=== PATIENT | male | born 1960 | race African-American/Black ===

== ENCOUNTER 2021-03-12 08:49 | Inpatient (IN) | payer MEDICAID, OTHER ==
[~2021-03-12] VITALS: Ht 180.3 cm; Wt 81.3 kg
[~2021-03-12 08:49] MED LIST: AMLO10TA4 PO; CARI350T28 PO; FLOV44 INH; HYDR-519 PO; METF-416 PO
[2021-03-12] MEDS ORDERED: MORPHINE SULFATE 4 MG/ML CPJ (NOT FOR IM USE) IV ONE ×2 (09:15→10:15)
[2021-03-12 09:45] LABS: HEMATOCRIT. 30.9 % (42.0-52.0); HEMOGLOBIN. 9.6 g/dL (14.0-18.0); MEAN CORPUSCULAR HEMOGLOBIN 21.5 pg (28.0-32.0); MEAN CORPUSCULAR VOLUME 69.4 fL (80.0-94.0); MEAN PLATELET VOLUME 7.5 fl (7.4-10.4); PLATELET 332 x1000/uL (130-400); RED BLOOD CELL COUNT 4.45 mill/uL (4.7-6.1); RED CELL DISTRIBUTION WIDTH 21.7 % (11.6-14.6)
[2021-03-12 09:51] LABS: CHLORIDE 99 mEq/L (98-107)
[2021-03-12 10:37] LABS: PLATELET ESTIMATE NORMAL
[2021-03-12] MEDS ORDERED: CLONIDINE 0.1MG TABLET PO PRN (12:00)
[2021-03-12] MEDS ORDERED: ONDANSETRON HCL 4MG/2ML INJ IV PRN (12:00)
[2021-03-12] MEDS ORDERED: NALOXONE HCL 0.4MG/ML VIAL IV PRN (12:15)
[2021-03-12] MEDS: DIPHENHYDRAMINE 50MG/ML VIAL IV PRN ×2 (14:08→21:41)
[2021-03-12] MEDS: MORPHINE SULFATE 2 MG/ML CPJ (NOT FOR IM USE) IV PRN ×3 (14:08→21:41)
[2021-03-12 14:38] LABS: CLARITY URINE CLEAR (CLEAR); COLOR URINE YELLOW (YELLOW); KETONES URINE NEGATIVE (NEGATIVE); LEUKOCYTE ESTERASE URINE TRACE (NEGATIVE); NITRITE URINE NEGATIVE (NEGATIVE); OCCULT BLOOD URINE NEGATIVE (NEGATIVE); PH URINE 6.5 (4.5-8.0); PROTEIN URINE NEGATIVE (NEGATIVE); SPECIFIC GRAVITY URINE 1.017 (1.005-1.030)
[2021-03-12] MEDS: ASPIRIN 81MG EC TABLET PO SCH (14:49)
[2021-03-12 14:58] LABS: METHADONE URINE SCREEN NEGATIVE (NEGATIVE); OPIATES URINE SCREEN PRESUMTIVE POSITIVE (NEGATIVE); PHENCYCLIDINE URINE SCREEN NEGATIVE (NEGATIVE)
[2021-03-12 14:59] LABS: *AMPHETAMINES SCREEN URINE NEGATIVE (NEGATIVE); *BARBITURATES SCREEN URINE NEGATIVE (NEGATIVE); *BENZODIAZEPINES SCREEN URINE NEGATIVE (NEGATIVE); *COCAINE SCREEN URINE PRESUMTIVE POSITIVE (NEGATIVE); CANNABINOID URINE SCREEN NEGATIVE (NEGATIVE)
[2021-03-12] MEDS: FUROSEMIDE 40MG/4ML VIAL IV SCH ×2 (17:00→18:38)
[2021-03-12 18:15] VITALS: BP 108/60
[2021-03-12] MEDS ORDERED: POTA-189 MT (18:59)
[2021-03-12] MEDS ORDERED: DOCU100T MT (18:59)
[2021-03-12] MEDS ORDERED: CARV12.545 MT (18:59)
[2021-03-12] MEDS ORDERED: ASCO500C18 MT (18:59)
[2021-03-12] MEDS ORDERED: FURO80TA3 MT (18:59)
[2021-03-12] MEDS ORDERED: ATOR40TA70 MT (18:59)
[2021-03-12] MEDS ORDERED: ASPI-1497 MT (18:59)
[2021-03-12] MEDS ORDERED: PANT40TA51 MT (19:00)
[2021-03-12] MEDS ORDERED: ZINC50TA69 MT (19:00)
[2021-03-12] MEDS ORDERED: SENN-257 MT (19:00)
[2021-03-12 20:00] VITALS: BP 106/69
[2021-03-12 21:00] VITALS: BP 106/69
[2021-03-12] MEDS ORDERED: DEXTROSE 50% WATER 50ML SYRINGE IV PRN (23:00)
[2021-03-12 23:59] VITALS: BP 100/58
[2021-03-13 04:00] VITALS: BP 100/50
[2021-03-13] MEDS: INSULIN LISPRO 100 UNITS/ML SUBCUT SCH ×4 (06:27→21:00)
[2021-03-13] MEDS: BLOOD SUGAR DIAGNOSTIC STRIP TEST SCH ×4 (06:27→21:00)
[2021-03-13] MEDS: MORPHINE SULFATE 2 MG/ML CPJ (NOT FOR IM USE) IV PRN ×4 (07:49→23:59)
[2021-03-13 07:55] VITALS: BP 103/65
[2021-03-13] MEDS: FUROSEMIDE 40MG/4ML VIAL IV SCH ×2 (08:02→17:00)
[2021-03-13] MEDS: ASPIRIN 81MG EC TABLET PO SCH (08:02)
[2021-03-13 12:00] VITALS: BP 107/72
[2021-03-13] MEDS ORDERED: LACTULOSE 20G/30ML UDC PO NR (15:15)
[2021-03-13 16:00] VITALS: BP_SYST 96; BP_DIAS 60; BP_DIAS 63
[2021-03-13 17:22] LABS: HEMATOCRIT. 29.5 % (42.0-52.0); MEAN CORPUSCULAR HEMOGLOBIN 21.4 pg (28.0-32.0); MEAN CORPUSCULAR VOLUME 70.1 fL (80.0-94.0); MEAN PLATELET VOLUME 8.3 fl (7.4-10.4); PLATELET 377 x1000/uL (130-400); RED BLOOD CELL COUNT 4.21 mill/uL (4.7-6.1); RED CELL DISTRIBUTION WIDTH 21.7 % (11.6-14.6)
[2021-03-13 17:41] LABS: CHLORIDE 98 mEq/L (98-107)
[2021-03-13 17:54] LABS: PLATELET ESTIMATE NORMAL
[2021-03-13] MEDS ORDERED: ENOXAPARIN 40MG/0.4ML SYR SUBCUT SCH (18:30)
[2021-03-13] MEDS: ENOXAPARIN 40MG/0.4ML SYR SUBCUT SCH ×2 (19:00→19:52)
[2021-03-13] MEDS: DIPHENHYDRAMINE 50MG/ML VIAL IV PRN (19:52)
[2021-03-13 20:00] VITALS: BP 128/83
[2021-03-14] VITALS: BP 115/75
[2021-03-14] MEDS: ACETAMINOPHEN 325MG TABLET PO PRN (02:28)
[2021-03-14] MEDS: MORPHINE SULFATE 2 MG/ML CPJ (NOT FOR IM USE) IV PRN ×5 (03:59→23:29)
[2021-03-14 04:00] VITALS: BP 107/62
[2021-03-14] MEDS: BLOOD SUGAR DIAGNOSTIC STRIP TEST SCH ×4 (06:15→21:19)
[2021-03-14] MEDS: INSULIN LISPRO 100 UNITS/ML SUBCUT SCH ×4 (06:15→21:00)
[2021-03-14 08:00] VITALS: BP 89/62
[2021-03-14] MEDS: FUROSEMIDE 40MG/4ML VIAL IV SCH (08:24)
[2021-03-14] MEDS: ASPIRIN 81MG EC TABLET PO SCH (08:25)
[2021-03-14 12:00] VITALS: BP 87/58
[2021-03-14 16:00] VITALS: BP 85/56
[2021-03-14 20:00] VITALS: BP 112/89
[2021-03-14] MEDS ORDERED: FUROSEMIDE 40MG TABLET PO SCH (21:00)
[2021-03-14] MEDS: ENOXAPARIN 40MG/0.4ML SYR SUBCUT SCH (21:19)
[2021-03-14] MEDS: HYDROCODONE/ACETAMINOPHEN 10/325MG TABLET PO PRN (21:33)
[2021-03-15] VITALS (7 sets, daily range): BP systolic 86–109; BP diastolic 34–67
[2021-03-15] MEDS: ACETAMINOPHEN 325MG TABLET PO PRN ×2 (00:38→17:07)
[2021-03-15] MEDS: DIPHENHYDRAMINE 50MG/ML VIAL IV PRN ×2 (02:26→22:49)
[2021-03-15] MEDS: HYDROCODONE/ACETAMINOPHEN 10/325MG TABLET PO PRN ×2 (05:05→20:56)
[2021-03-15] MEDS: BLOOD SUGAR DIAGNOSTIC STRIP TEST SCH ×4 (06:01→20:56)
[2021-03-15] MEDS: INSULIN LISPRO 100 UNITS/ML SUBCUT SCH ×4 (06:07→20:56)
[2021-03-15] MEDS: MORPHINE SULFATE 2 MG/ML CPJ (NOT FOR IM USE) IV PRN ×2 (06:13→10:10)
[2021-03-15] MEDS: ASPIRIN 81MG EC TABLET PO SCH (09:56)
[2021-03-15 15:33] LABS: HEMATOCRIT. 28.4 % (42.0-52.0); HEMOGLOBIN. 8.7 g/dL (14.0-18.0); MEAN CORPUSCULAR HEMOGLOBIN 21.4 pg (28.0-32.0); MEAN CORPUSCULAR VOLUME 69.6 fL (80.0-94.0); MEAN PLATELET VOLUME 8.1 fl (7.4-10.4); PLATELET 421 x1000/uL (130-400); RED BLOOD CELL COUNT 4.08 mill/uL (4.7-6.1); RED CELL DISTRIBUTION WIDTH 21.7 % (11.6-14.6)
[2021-03-15 15:44] LABS: CHLORIDE 98 mEq/L (98-107)
[2021-03-15] MEDS: IPRATROPIUM/ALBUTEROL 0.5-3(2.5)MG/3ML NEB NEB PRN (15:45)
[2021-03-15 17:48] LABS: PLATELET ESTIMATE INCREASED
[2021-03-15] MEDS ORDERED: LACTULOSE 20G/30ML UDC PO NR (18:00)
[2021-03-15] MEDS: ENOXAPARIN 40MG/0.4ML SYR SUBCUT SCH (18:04)
[2021-03-16] VITALS: BP 110/80
[2021-03-16] MEDS: MORPHINE SULFATE 2 MG/ML CPJ (NOT FOR IM USE) IV PRN (01:54)
[2021-03-16 04:00] VITALS: BP 100/65
[2021-03-16] MEDS: IPRATROPIUM/ALBUTEROL 0.5-3(2.5)MG/3ML NEB NEB PRN (05:01)
[2021-03-16] MEDS: HYDROCODONE/ACETAMINOPHEN 10/325MG TABLET PO PRN ×3 (05:21→18:58)
[2021-03-16] MEDS: BLOOD SUGAR DIAGNOSTIC STRIP TEST SCH ×4 (06:40→21:06)
[2021-03-16] MEDS: INSULIN LISPRO 100 UNITS/ML SUBCUT SCH ×4 (06:53→21:00)
[2021-03-16 08:00] VITALS: BP 99/59
[2021-03-16] MEDS ORDERED: AMLODIPINE 2.5MG TABLET PO SCH (09:00)
[2021-03-16] MEDS: FUROSEMIDE 40MG TABLET PO SCH (09:00)
[2021-03-16] MEDS: ASPIRIN 81MG EC TABLET PO SCH (09:23)
[2021-03-16 09:28] LABS: HEMATOCRIT. 29.5 % (42.0-52.0); HEMOGLOBIN. 9.1 g/dL (14.0-18.0); MEAN CORPUSCULAR HEMOGLOBIN 21.9 pg (28.0-32.0); MEAN CORPUSCULAR VOLUME 70.7 fL (80.0-94.0); MEAN PLATELET VOLUME 8.3 fl (7.4-10.4); PLATELET 412 x1000/uL (130-400); RED BLOOD CELL COUNT 4.17 mill/uL (4.7-6.1); RED CELL DISTRIBUTION WIDTH 21.1 % (11.6-14.6)
[2021-03-16 09:56] LABS: CHLORIDE 98 mEq/L (98-107)
[2021-03-16 12:00] VITALS: BP 105/67
[2021-03-16 13:00] LABS: PLATELET ESTIMATE INCREASED
[2021-03-16 16:00] VITALS: BP 94/64
[2021-03-16] MEDS: ENOXAPARIN 40MG/0.4ML SYR SUBCUT SCH (19:00)
[2021-03-16 20:00] VITALS: BP 97/66
[2021-03-17] VITALS (7 sets, daily range): BP systolic 96–106; BP diastolic 61–74
[2021-03-17] MEDS: HYDROCODONE/ACETAMINOPHEN 10/325MG TABLET PO PRN ×4 (00:56→19:59)
[2021-03-17] MEDS ORDERED: ACETAMINOPHEN 325MG TABLET PO PRN (03:30)
[2021-03-17] MEDS: BLOOD SUGAR DIAGNOSTIC STRIP TEST SCH ×4 (06:13→21:17)
[2021-03-17] MEDS: INSULIN LISPRO 100 UNITS/ML SUBCUT SCH ×4 (06:13→21:00)
[2021-03-17] MEDS: ASPIRIN 81MG EC TABLET PO SCH (08:33)
[2021-03-17] MEDS: FUROSEMIDE 40MG TABLET PO SCH (08:33)
[2021-03-17] MEDS ORDERED: LACTULOSE 20G/30ML UDC PO NR (14:45)
[2021-03-17] MEDS: IPRATROPIUM/ALBUTEROL 0.5-3(2.5)MG/3ML NEB NEB PRN ×2 (17:38→21:17)
[2021-03-17] MEDS: ENOXAPARIN 40MG/0.4ML SYR SUBCUT SCH (18:01)
== END 2021-03-17 23:31 | DRG 349 ==
LOC: ER 08:49 → 7EST 11:29 → EDBEDREQ 11:37 → EDBEDREQTM 11:37 → ENRESERV 15:56
PROVIDERS: ADMIT Internal Medicine; ATTEND Internal Medicine
DX: T87.89 Other complications of amputation stump (principal); I31.3 Pericardial effusion (noninflammatory); E44.1 Mild protein-calorie malnutrition; E11.51 Type 2 diabetes mellitus with diabetic peripheral angiopathy without gangrene; D72.825 Bandemia; E78.00 Pure hypercholesterolemia, unspecified; M94.0 Chondrocostal junction syndrome [Tietze]; E78.5 Hyperlipidemia, unspecified; T40.5X1A Poisoning by cocaine, accidental (unintentional), initial encounter; I50.22 Chronic systolic (congestive) heart failure; I11.0 Hypertensive heart disease with heart failure; I25.10 Atherosclerotic heart disease of native coronary artery without angina pectoris; I48.91 Unspecified atrial fibrillation; J44.9 Chronic obstructive pulmonary disease, unspecified; S90.421A Blister (nonthermal), right great toe, initial encounter; G89.29 Other chronic pain; I25.5 Ischemic cardiomyopathy; M85.80 Other specified disorders of bone density and structure, unspecified site; Y82.8 Other medical devices associated with adverse incidents; F14.10 Cocaine abuse, uncomplicated; Z20.822 Contact with and (suspected) exposure to COVID-19; S80.811A Abrasion, right lower leg, initial encounter; X58.XXXA Exposure to other specified factors, initial encounter; I25.2 Old myocardial infarction; Z87.891 Personal history of nicotine dependence; Z89.612 Acquired absence of left leg above knee; Z95.0 Presence of cardiac pacemaker; Z95.5 Presence of coronary angioplasty implant and graft; Z79.899 Other long term (current) drug therapy; Z99.3 Dependence on wheelchair; Z88.6 Allergy status to analgesic agent; Z91.010 Allergy to peanuts; Z79.891 Long term (current) use of opiate analgesic; Z79.84 Long term (current) use of oral hypoglycemic drugs; Y92.89 Other specified places as the place of occurrence of the external cause; Y93.89 Activity, other specified; Y99.8 Other external cause status; Z68.25 Body mass index [BMI] 25.0-25.9, adult
CPT/HCPCS: 36415; 71045; 73080; 73090; 73600; 73630; 80048; 80053; 80305; 81003; 82962; 83036; 83880; 84443; 84484; 85025; 87426; 93005; 93306; 93922; 93970; 94640; 97161; 99285; C1893; J1200; J1650; J1815; J1940; J2270; J2405

== ENCOUNTER 2021-03-18 23:00 | Emergency (ER) | payer OTHER ==
[~2021-03-18] VITALS: Ht 182.9 cm; Wt 96.0 kg
[~2021-03-18 23:00] MED LIST changes: +ASCO500C18 MT; +ASPI-1497 MT; +ATOR40TA70 MT; +CARV12.545 MT; +DOCU100T MT; +FURO80TA3 MT; +PANT40TA51 MT; +POTA-189 MT; +SENN-257 MT; +ZINC50TA69 MT
[2021-03-18] MEDS ORDERED: MORPHINE SULFATE 10 MG/ML CPJ IM ONE (23:45)
[2021-03-19] MEDS ORDERED: GABA300C MT (02:31)
[2021-03-19 06:57] VITALS: BP 125/80
== END 2021-03-19 07:06 | disposition home or self-care (01) ==
LOC: ER 23:30
DX: R07.89 Other chest pain (principal)
CPT/HCPCS: 71045; 96372; 99283; J2270

== ENCOUNTER 2021-03-19 21:08 | Inpatient (IN) | payer OTHER ==
[~2021-03-19] VITALS: Ht 182.9 cm; Wt 80.3 kg
[~2021-03-19 21:08] MED LIST changes: +GABA300C MT
[2021-03-19 21:38] LABS: BASOPHILS % 1.2 % (0.0-2.0); EOSINOPHILS % 2.8 % (0.0-5.0); HEMATOCRIT. 30.6 % (42.0-52.0); HEMOGLOBIN. 9.3 g/dL (14.0-18.0); LYMPHOCYTES % 33.2 % (20.0-50.0); MEAN CORPUSCULAR HEMOGLOBIN 21.3 pg (28.0-32.0); MEAN CORPUSCULAR VOLUME 70.1 fL (80.0-94.0); MEAN PLATELET VOLUME 7.7 fl (7.4-10.4); MONOCYTES % 11.5 % (2.0-8.0); NEUTROPHILS % 51.3 % (40.0-76.0); PLATELET 547 x1000/uL (130-400); RED BLOOD CELL COUNT 4.37 mill/uL (4.7-6.1); RED CELL DISTRIBUTION WIDTH 21.9 % (11.6-14.6)
[2021-03-19 21:42] LABS: CHLORIDE 101 mEq/L (98-107)
[2021-03-20] MEDS ORDERED: MORPHINE SULFATE 4 MG/ML CPJ (NOT FOR IM USE) IV ONE (00:15)
[2021-03-20 04:00] VITALS: BP 105/67
[2021-03-20] MEDS ORDERED: ACETAMINOPHEN 325MG TABLET PO PRN (07:30)
[2021-03-20] MEDS ORDERED: HYDROCODONE/ACETAMINOPHEN 5/325MG TABLET PO PRN (07:30)
[2021-03-20] MEDS ORDERED: ONDANSETRON HCL 4MG/2ML INJ IV PRN (07:30)
[2021-03-20] MEDS ORDERED: CLONIDINE 0.1MG TABLET PO PRN (07:30)
[2021-03-20 08:00] VITALS: BP 91/51
[2021-03-20] MEDS ORDERED: ENOXAPARIN 40MG/0.4ML SYR SUBCUT SCH (09:00)
[2021-03-20] MEDS ORDERED: MORPHINE SULFATE 2 MG/ML CPJ (NOT FOR IM USE) IV NR (09:45)
[2021-03-20] MEDS ORDERED: POLYETHYLENE GLYCOL 3350 (17GM) 1 DOSE PACK PO NR (09:45)
[2021-03-20] MEDS ORDERED: NALOXONE HCL 0.4MG/ML VIAL IV PRN (10:00)
[2021-03-20 12:00] VITALS: BP 125/77
[2021-03-20] MEDS: HYDROCODONE/ACETAMINOPHEN 10/325MG TABLET PO PRN ×2 (12:33→18:38)
[2021-03-20] MEDS ORDERED: LACTULOSE 20G/30ML UDC PO NR (15:00)
[2021-03-20 16:00] VITALS: BP 104/65
[2021-03-20 20:00] VITALS: BP 122/79
[2021-03-20 22:49] LABS: *BENZODIAZEPINES SCREEN URINE NEGATIVE (NEGATIVE); *COCAINE SCREEN URINE NEGATIVE (NEGATIVE)
[2021-03-20 22:51] LABS: *AMPHETAMINES SCREEN URINE NEGATIVE (NEGATIVE); *BARBITURATES SCREEN URINE NEGATIVE (NEGATIVE); CANNABINOID URINE SCREEN NEGATIVE (NEGATIVE); METHADONE URINE SCREEN NEGATIVE (NEGATIVE); OPIATES URINE SCREEN PRESUMTIVE POSITIVE (NEGATIVE); PHENCYCLIDINE URINE SCREEN NEGATIVE (NEGATIVE)
[2021-03-21] VITALS: BP 124/82
[2021-04-07] MEDS ORDERED: AZIT250T12 MT (08:36)
== END 2021-03-21 01:30 | DRG 816 ==
LOC: ER 21:08 → 7EST 03-20 00:16 → ENRESERV 03-20 03:06
PROVIDERS: ADMIT Internal Medicine; ATTEND Internal Medicine
DX: T40.5X1A Poisoning by cocaine, accidental (unintentional), initial encounter (principal); I31.3 Pericardial effusion (noninflammatory); T87.89 Other complications of amputation stump; D50.9 Iron deficiency anemia, unspecified; E11.51 Type 2 diabetes mellitus with diabetic peripheral angiopathy without gangrene; E78.5 Hyperlipidemia, unspecified; R07.9 Chest pain, unspecified; I25.10 Atherosclerotic heart disease of native coronary artery without angina pectoris; I50.22 Chronic systolic (congestive) heart failure; I11.0 Hypertensive heart disease with heart failure; J44.9 Chronic obstructive pulmonary disease, unspecified; F14.90 Cocaine use, unspecified, uncomplicated; F17.200 Nicotine dependence, unspecified, uncomplicated; Y83.5 Amputation of limb(s) as the cause of abnormal reaction of the patient, or of later complication, without mention of misadventure at the time of the procedure; Y92.89 Other specified places as the place of occurrence of the external cause; Z89.612 Acquired absence of left leg above knee; Z95.5 Presence of coronary angioplasty implant and graft; Z88.6 Allergy status to analgesic agent; Z91.010 Allergy to peanuts; Z79.899 Other long term (current) drug therapy; Z79.82 Long term (current) use of aspirin; Z95.0 Presence of cardiac pacemaker; Z82.49 Family history of ischemic heart disease and other diseases of the circulatory system
CPT/HCPCS: 36415; 71045; 80053; 80305; 83880; 84484; 85025; 93005; 99285; J1650; J2270

== ENCOUNTER 2021-04-01 19:41 | Emergency (ER) | payer OTHER ==
[~2021-04-01] VITALS: Ht 182.9 cm; Wt 100.0 kg
[2021-04-01 19:50] VITALS: BP 113/70
== END 2021-04-02 06:30 | disposition left against medical advice (07) ==
LOC: ER 19:41
DX: R07.89 Other chest pain (principal); F10.229 Alcohol dependence with intoxication, unspecified; I25.10 Atherosclerotic heart disease of native coronary artery without angina pectoris; E11.9 Type 2 diabetes mellitus without complications; I10 Essential (primary) hypertension; I25.2 Old myocardial infarction; Z79.899 Other long term (current) drug therapy
CPT/HCPCS: 71045; 93005; 99283

== ENCOUNTER 2021-04-07 19:53 | Emergency (ER) | payer OTHER ==
[~2021-04-07] VITALS: Ht 182.9 cm; Wt 95.0 kg
[~2021-04-07 19:53] MED LIST changes: +AZIT250T12 MT
[2021-04-07 19:54] VITALS: BP 117/77
== END 2021-04-08 10:24 | disposition left against medical advice (07) ==
LOC: ER 19:53
DX: R07.89 Other chest pain (principal); E78.00 Pure hypercholesterolemia, unspecified; E11.9 Type 2 diabetes mellitus without complications; I11.0 Hypertensive heart disease with heart failure; I50.9 Heart failure, unspecified; Z88.6 Allergy status to analgesic agent; Z91.010 Allergy to peanuts; Z88.5 Allergy status to narcotic agent; Z79.899 Other long term (current) drug therapy; Z79.82 Long term (current) use of aspirin
CPT/HCPCS: 93005; 99283

== ENCOUNTER 2021-04-07 23:22 | Emergency (ER) | payer OTHER ==
[~2021-04-07] VITALS: Ht 170.2 cm; Wt 82.0 kg
[2021-04-07 23:23] VITALS: BP 100/68
== END 2021-04-08 04:14 | disposition home or self-care (01) ==
LOC: ER 23:22
DX: R07.89 Other chest pain (principal); J44.9 Chronic obstructive pulmonary disease, unspecified; I51.9 Heart disease, unspecified; Z95.0 Presence of cardiac pacemaker; Z88.6 Allergy status to analgesic agent; Z91.010 Allergy to peanuts
CPT/HCPCS: 71045; 93005; 99283

== ENCOUNTER 2021-05-26 15:14 | Inpatient (IN) | payer MEDICAID, OTHER ==
[~2021-05-26] VITALS: Ht 182.9 cm; Wt 71.7 kg
[2021-05-26] MEDS ORDERED: MORPHINE SULFATE 4 MG/ML CPJ (NOT FOR IM USE) IV STA (15:32)
[2021-05-26] MEDS ORDERED: ONDANSETRON HCL 4MG/2ML INJ IV STA (15:32)
[2021-05-26] MEDS ORDERED: NITROGLYCERIN OINT 1GM/INCH UDPKT TD ONE (15:45)
[2021-05-26] MEDS ORDERED: NITROGLYCERIN 0.4MG TABLET SL SL PRN (15:45)
[2021-05-26 16:38] LABS: BASOPHILS % 0.9 % (0.0-2.0); EOSINOPHILS % 2.9 % (0.0-5.0); HEMATOCRIT. 28.4 % (42.0-52.0); HEMOGLOBIN. 9.1 g/dL (14.0-18.0); LYMPHOCYTES % 28.7 % (20.0-50.0); MEAN CORPUSCULAR HEMOGLOBIN 24.3 pg (28.0-32.0); MEAN CORPUSCULAR VOLUME 75.7 fL (80.0-94.0); MEAN PLATELET VOLUME 8.7 fl (7.4-10.4); MONOCYTES % 11.8 % (2.0-8.0); NEUTROPHILS % 55.7 % (40.0-76.0); PLATELET 256 x1000/uL (130-400); RED BLOOD CELL COUNT 3.75 mill/uL (4.7-6.1)
[2021-05-26 16:44] LABS: CHLORIDE 105 mEq/L (98-107)
[2021-05-26 16:48] LABS: ETHANOL BLOOD < 10 mg/dL
[2021-05-26] MEDS ORDERED: FUROSEMIDE 40MG/4ML VIAL IVP ONE (17:30)
[2021-05-26 18:45] LABS: *AMPHETAMINES SCREEN URINE NEGATIVE (NEGATIVE); *BARBITURATES SCREEN URINE NEGATIVE (NEGATIVE); *BENZODIAZEPINES SCREEN URINE NEGATIVE (NEGATIVE)
[2021-05-26 18:47] LABS: *COCAINE SCREEN URINE PRESUMTIVE POSITIVE (NEGATIVE); CANNABINOID URINE SCREEN NEGATIVE (NEGATIVE); METHADONE URINE SCREEN NEGATIVE (NEGATIVE); OPIATES URINE SCREEN PRESUMTIVE POSITIVE (NEGATIVE); PHENCYCLIDINE URINE SCREEN NEGATIVE (NEGATIVE)
[2021-05-26] MEDS ORDERED: IPRATROPIUM BROMIDE (0.02%) 0.5MG/2.5ML NEB HHN STA (20:21)
[2021-05-26] MEDS ORDERED: ALBUTEROL (0.083%) 2.5MG/3ML NEB HHN STA (20:21)
[2021-05-26] MEDS ORDERED: CLONIDINE 0.1MG TABLET PO PRN (20:45)
[2021-05-26] MEDS ORDERED: GUAIFENESIN 200MG/10ML SUGAR FREE UDC PO PRN (20:45)
[2021-05-26] MEDS ORDERED: HYDRALAZINE 20MG/ML VIAL IV PRN (20:45)
[2021-05-26] MEDS ORDERED: ONDANSETRON HCL 4MG/2ML INJ IV PRN (20:45)
[2021-05-26] MEDS ORDERED: DOCUSATE SODIUM 100MG CAPSULE PO PRN (20:45)
[2021-05-26] MEDS ORDERED: ACETAMINOPHEN 325MG TABLET PO PRN (20:45)
[2021-05-26] MEDS ORDERED: HYDROCODONE/ACETAMINOPHEN 5/325MG TABLET PO PRN (20:45)
[2021-05-26] MEDS ORDERED: ENOXAPARIN 40MG/0.4ML SYR SUBCUT SCH (21:00)
[2021-05-26] MEDS ORDERED: ATORVASTATIN CALCIUM 40MG TABLET PO SCH (21:00)
[2021-05-27 04:00] VITALS: BP 128/90
[2021-05-27 04:11] VITALS: BP 116/76
[2021-05-27] MEDS ORDERED: FUROSEMIDE 40MG/4ML VIAL IV SCH (09:00)
[2021-05-27] MEDS ORDERED: ASPIRIN 81MG EC TABLET PO SCH (09:00)
== END 2021-05-27 09:00 | disposition left against medical advice (07) | DRG 198 ==
LOC: ER 15:14 → MICUSO 19:48 → EDBEDREQTM 19:54 → EDBEDREQ 19:54 → 5WST 05-27 04:03
PROVIDERS: ADMIT Internal Medicine; ATTEND Internal Medicine
DX: I24.9 Acute ischemic heart disease, unspecified (principal); I50.21 Acute systolic (congestive) heart failure; E11.51 Type 2 diabetes mellitus with diabetic peripheral angiopathy without gangrene; Z89.612 Acquired absence of left leg above knee; I11.0 Hypertensive heart disease with heart failure; I25.10 Atherosclerotic heart disease of native coronary artery without angina pectoris; J44.9 Chronic obstructive pulmonary disease, unspecified; Z53.29 Procedure and treatment not carried out because of patient's decision for other reasons; Z95.5 Presence of coronary angioplasty implant and graft; Z20.822 Contact with and (suspected) exposure to COVID-19; Z82.49 Family history of ischemic heart disease and other diseases of the circulatory system; Z88.6 Allergy status to analgesic agent; Z91.010 Allergy to peanuts; Z79.899 Other long term (current) drug therapy; Z79.82 Long term (current) use of aspirin; I25.2 Old myocardial infarction; Z95.0 Presence of cardiac pacemaker; F14.10 Cocaine abuse, uncomplicated; F19.90 Other psychoactive substance use, unspecified, uncomplicated; I25.5 Ischemic cardiomyopathy; Z87.891 Personal history of nicotine dependence; Z91.19 Patient's noncompliance with other medical treatment and regimen
CPT/HCPCS: 36415; 71045; 80053; 80305; 80320; 83880; 84443; 84484; 85025; 87426; 93005; 94640; 99291; J1650; J1940; J2270; J2405; G0480

== ENCOUNTER 2021-12-24 19:37 | Emergency (ER) | payer MEDICAID, OTHER ==
[~2021-12-24] VITALS: Ht 177.8 cm; Wt 80.0 kg
[2021-12-24 22:38] LABS: HEMOGLOBIN. 11.2 g/dL (14.0-18.0); MEAN CORPUSCULAR HEMOGLOBIN 25.9 pg (28.0-32.0); MEAN PLATELET VOLUME 9.2 fl (7.4-10.4); PLATELET 205 x1000/uL (130-400); RED BLOOD CELL COUNT 4.32 mill/uL (4.7-6.1); RED CELL DISTRIBUTION WIDTH 24.8 % (11.6-14.6)
[2021-12-24 22:49] LABS: CHLORIDE 105 mEq/L (98-107)
[2021-12-24] MEDS ORDERED: ASPIRIN 325MG EC TABLET PO ONE (23:00)
[2021-12-24] MEDS ORDERED: METHYLPREDNISOLONE SOD SUCC 125 MG/2 ML VIAL IV ONE (23:00)
[2021-12-24] MEDS ORDERED: MORPHINE SULFATE 4 MG/ML CPJ (NOT FOR IM USE) IV ONE (23:00)
[2021-12-24] MEDS ORDERED: IPRATROPIUM/ALBUTEROL 0.5-3(2.5)MG/3ML NEB HHN ONE (23:00)
[2021-12-24 23:02] LABS: PLATELET ESTIMATE NORMAL
[2021-12-24 23:08] LABS: PROTHROMBIN TIME 10.6 sec (9.6-11.0)
[2021-12-24] MEDS ORDERED: FUROSEMIDE 40MG/4ML VIAL IVP ONE (23:30)
[2021-12-24] MEDS ORDERED: HYDROCODONE/ACETAMINOPHEN 5/325MG TABLET PO ONE (23:30)
[2021-12-25] MEDS ORDERED: P50 MT (01:45)
[2021-12-25] MEDS ORDERED: HYDROCODONE/ACETAMINOPHEN 5/325MG TABLET PO ONE (02:00)
[2021-12-25 06:01] VITALS: BP 127/80
== END 2021-12-25 09:44 ==
LOC: ER 19:37
DX: J44.1 Chronic obstructive pulmonary disease with (acute) exacerbation (principal); I11.0 Hypertensive heart disease with heart failure; I50.9 Heart failure, unspecified; I49.1 Atrial premature depolarization; F17.210 Nicotine dependence, cigarettes, uncomplicated; Z95.5 Presence of coronary angioplasty implant and graft; Z95.0 Presence of cardiac pacemaker; Z89.612 Acquired absence of left leg above knee; Z79.82 Long term (current) use of aspirin; Z79.899 Other long term (current) drug therapy
CPT/HCPCS: 36415; 71045; 80053; 83880; 84484; 85025; 85610; 93005; 94640; 96374; 96375; 99285; J1940; J2270; J2930; Z7610